=== PATIENT | female | born 1985 | race Caucasian/White ===

== ENCOUNTER 2025-01-16 09:26 | Emergency (ER) | payer MEDICAID, OTHER ==
[~2025-01-16] VITALS: Ht 167.6 cm; Wt 74.7 kg
--- NOTE | 2025-01-16 10:54 | Physician Documentation ---
History of Present Illness Chief Complaint: Flank Pain Stated Complaint: WORSENING UTI Time Seen by MD: 10:43 OK to notify your PCP?: Yes [facility] Source: patient, RN/MD, RN notes reviewed, old records Mode of Arrival: POV, Ambulatory Exam Limitations: no limitations HPI 39 year old female with a history of recurrent urine infections presents to the emergency department for complaints of flank pain with an onset of five days. She states that she is experiencing back pain that is greater on the left than the right. Additionally there are complaints of chills, intermittent fevers, and some burning when urinating. She denies any abnormal vaginal discharge. Patient denies any other associated symptoms at this time. Patient denies any other alleviating or exacerbating factors Medication Reconciliation Allergies: Coded Allergies: No Known Allergies (Unverified , 01/16/25) Scheduled PRN Dicyclomine Hcl* (Bentyl*), 1 CAP PO Q8H PRN for ABDOMINAL PAIN Past Medical History Past Medical History: No Pertinent History Past Surgical History: no surgical history Alcohol Use: Occasionally Drug Use: none Lives with: Family Lives In: Home Occupation: employed Review of Systems All Other Systems at this time: Reviewed and Negative ROS As stated above in the HPI, otherwise all systems are reviewed and negative. Physical Exam Vital Signs: RN Vital Signs have been reviewed: Yes, Temperature: 97.9, Source: Temporal, Heart Rate: 78, Respiratory Rate: 20, BP: 141/103, Pulse Oximetry: 98, Weight: 74.700 Pulse Oximetry Reflects: adequate oxygenation Physical Exam General: The patient is well developed, well nourished, nontoxic appearing and is in no acute distress. Skin: [place], warm and dry with no rashes. HEENT: Head was normocephalic and atraumatic. Eyes - pupils equal, round, reac tive to light and accommodation. Extraocular movements were intact. Conjunctivae were nonicteric. Ears - bilateral tympanic membranes were normal. The mouth and oropharynx were clear with moist mucous membranes. There were no pharyngeal exudates or erythema. Neck: Supple and nontender. There was no jugular venous distention, lymphadenopathy, thyromegaly or masses. Chest: Clear to auscultation bilaterally without wheezes, rales or rhonchi. No accessory muscle use. No dullness to percussion. Heart: Rate regular and rhythmic. S1, S2. No murmurs. Palpation of the chest wall was normal. No rubs or thrills. Abdomen: Mild superpubic discomfort with CVA tenderness greater on left than right. Positive bowel sounds. No guarding or rebound. No hepatosplenomegaly or palpable masses. Extremities: No cyanosis, clubbing or edema. The patient moves all extremities. Pulses were equal and symmetric. Neurologic: Cranial nerves II-XII were intact. Sensation was intact to light touch throughout. Motor strength was 5/5 in all four extremities. Deep tendon reflexes were intact in both upper and lower extremities. Psychologic: The patient was oriented to person, place and time. The patient demonstrated appropriate judgement and insight. Progress Results/Orders Reviewed/noted all lab results: Yes Results/Orders Orders - FORTUNATO COLON MD Cbc/Diff (01/16/25 10:43) Lipase (01/16/25 10:43) Ethanol (01/16/25 10:43) MG (01/16/25 10:43) Urinalysis, Cult If Indicated (01/16/25 10:43) Drug Screen, Urine (01/16/25 10:43) BMP (01/16/25 10:43) Completed Orders - FORTUNATO COLON MD Normal Saline 1000ml (Sodium Chloride 10 (01/16/25 10:45) Vital Signs 01/16/25 01/16/25 01/16/25 09:36 10:38 10:48 Temp 97.9 97.9 Pulse 78 78 Resp 18 20 20 B/P (MAP) 168/107 141/103 (116) Pulse Ox 100 98 Re-Evaluation Re-Evaluation : Re-Evaluation: Improved Progress Patient was seen and examined. Patient is given reassurance. The patient was having some abdominal pain. She was concerned about recurrent UTIs possible sepsis pyelonephritis. However white count was reassuring with a WBC of 8.9 h emoglobin 14 hematocrit 39. Platelets 352 without left shift neutrophils are 70.5. Chemistry was within normal limits urinalysis was negative hCG was negative however patient's tox screen was positive for cocaine negative for alcohol. Patient states she was having some pain the other day and received some pills and may have received a from friend that was over the counter street drugs that was laced. She denies a history of cardiac abuse with cocaine. No history of coronary artery disease. There was no signs of ischemia patient was given Bentyl also benzodiazepines and fluids. She was encouraged to have a soft diet in case she is having some ischemic blood flow to the bowel. Ultimately patient was given reassurance and discharged home. Prescription of Bentyl was prescribed as she continued to have abdominal pain Continuous cardiac specialist interpretation shows normal sinus rhythm heart rate 80s, no ectopy, normal, my interpretation. Pulse oximetry monitor interpretation shows normal oxygenation 99% room air, normal, my interpretation. EKG/XRAY/CT/US/VASC/MRI EKG : Additional Comment [facility] Test Date: 2025-01-16 Test Time: 13:55:11 Pat Name: MERE YOUSSEF Department: [facility]- Patient ID: [id number] Room: Gender: F Evp Marketing: NOE : 1985 Requested By: FORTUNATO COLON Order Number: [id number] Reading MD: Dr. Fortunato Colon Measurements Intervals [place] Rate: 75 P: 28 ND: 137 QRS: 54 QRSD: 97 T: 18 QT: 406 QTc: 454 Interpretive Statements Sinus rhythm Electronically Signed On 01-16-2025 16:26:[address] Fortunato Colon Please click the below link to view image of tracing. EKG Date and Time:01/16/25 1355 Electronically Signed by: FORTUNATO COLON MD Date and Time: 01/16/[address] : Impression Exam: CT CT ABDOMEN PELVIS History: ABD PAIN Comparison Study: None Technique: Multidetector spiral CT of the abdomen and pelvis was performed from lung bases to pubic symphysis. Imaging was performed without IV contrast. Axial, coronal and sagittal multiplanar reformats were obtained from the axial data set by the technologist. Radiation dose : Abdomen/Pelvis: CTDIvol 18 mGy, DLP 872 mGy*cm. Findings: Evaluation of solid organs is limited due to lack of intravenous contrast use. Lung Bases: No acute or significant lung base finding. Normal heart size. No pleural or pericardial effusion. Liver: The liver is normal in size. No focal lesions. Gallbladder and biliary Tree: Unremarkable Spleen: Unremarkable Pancreas: The pancreas is grossly normal in appearance. Adrenal Glands: Unremarkable Kidneys: Kidneys are grossly normal without calculi or hydronephrosis. Bladder: Grossly unremarkable for degree of distention. Bowel: The stomach is grossly normal in appearance. Small bowel and colon are normal in caliber and distribution. The appendix is not visualized; however, no secondary findings of acute appendicitis identified. Ascites: Absent Lymphadenopathy: No mesenteric, retroperitoneal or periportal lymphadenopathy. Abdominal wall and Mesentery: Unremarkable. Vasculature: The visualized abdominal aorta is normal in size and caliber. Evaluation of abdominal and pelvic vessels is limited due to lack of intravenous contrast. Pelvic Organs: Unremarkable Musculoskeletal: No aggressive focal bony lesions, acute fractures or dislocation. IMPRESSION: 1. No acute abdominal or pelvic findings. Radiation optimization: All CT scans at this facility use at least one of these dose optimization techniques: Automated exposure control mA and/or kV adjustment per patient size (includes targeted exams where dose is matched to clinical indication) or iterative reconstruction. HS:Y Electronically Signed by:KALE ESCUDERO MD Date & Time: 01/16/25 1249 Medical Decision Making Differential Dx:Considerations: Include: AAA, Angina/[place], Appendicitis, Bowel obstruction, Cholangitis, Cholelithasis, Constipation, Diverticular disease, Esophageal rupture, Gastritis/PUD, Gastroenteritis, GI hemorrhage, Hernia, Hepatitis, Inflammatory BD, Ischemic bowel, Pancreatitis, PID, Urinary obstruction, Urinary tract infection, Urolithiasis, Other Departure Time of Disposition: 14:42 Disposition: 01 HOME / SELF CARE / HOMELESS Impression: Primary Impression: Abdominal pain Qualified Codes: R10.9 - Unspecified abdominal pain Condition: Stable Discharge Instructions: Abdominal Pain, Adult, [id number] Referrals: NO PRIMARY CARE PROVIDER (PCP) Prescriptions Dicyclomine Hcl* (Bentyl*) 10 Mg Capsule 1 CAP PO Q8H PRN for ABDOMINAL PAIN for 3 Days, #10 CAP Prov: FORTUNATO COLON MD 01/16/25 Education Educated: Patient, Family Educated regarding: diagnosis, treatment, prognosis, need for follow up Signature Scribe Signature: Scribed for Fortunato Colon MD by Sonia Lopes . 01/16/25 11:45 Attestation: The note accurately reflects work and decisions made by me.Fortunato Colon MD 10:54 FORTUNATO COLON MD January 16, 2025 10:54 SONIA LAI January 16, 2025 11:45
[2025-01-16] MEDS: normal saline 1000ML IV soln IVB ONE ×2 (11:01→12:14)
[2025-01-16 11:17] LABS: BASOPHILS # (AUTO) 0.1 X10'3 (0-0.2); BASOPHILS % (AUTO) 0.7 % (0-1); EOSINOPHILS # (AUTO) 0.2 X10'3 (0-0.9); EOSINOPHILS % (AUTO) 2.4 % (0-6); HEMATOCRIT 39.9 % (35.0-45.0); HEMOGLOBIN 14.2 g/dl (12.0-16.0); LYMPHOCYTES # (AUTO) 1.7 X10'3 (1.1-4.8); LYMPHOCYTES % (AUTO) 19.3 % (21-51); MEAN CORPUSCULAR HGB CONC 35.5 g/dL (33.0-36.5); MEAN PLATELET VOLUME 6.3 FL (7.4-10.4); MONOCYTES # (AUTO) 0.6 X10'3 (0-0.9); MONOCYTES % (AUTO) 7.1 % (2-12); NEUTROPHILS # (AUTO) 6.3 X10'3 (1.8-7.7); NEUTROPHILS % (AUTO) 70.5 % (42-75); PLATELET COUNT 352 X10'3 (140-440); RED BLOOD COUNT 4.29 X10'6 (4.20-5.60); RED CELL DISTRIBUTION WIDTH 14.7 % (11.5-14.5); WHITE BLOOD COUNT 8.9 X10'3 (4.5-11.0)
[2025-01-16 11:24] LABS: ANION GAP 7 (8-16); BLOOD UREA NITROGEN 13 MG/DL (7-18); BUN/CREATININE RATIO 17.6 (10.0-20.0); CALCIUM 9.3 MG/DL (8.5-10.1); CHLORIDE 103 MMOL/L (99-107); CREATININE 0.74 MG/DL (0.40-0.90); ETHANOL < 10 MG/DL (<10); GLUCOSE 90 MG/DL (70-104); LIPASE 31 U/L (16-77); MAGNESIUM 2.1 MG/DL (1.5-2.4); POTASSIUM 4.2 MMOL/L (3.5-5.1); SODIUM 140 MMOL/L (135-145); TOTAL CARBON DIOXIDE 30.2 MMOL/L (24-32); eCRCL 97 ML/MIN; eGFR 88 ML/MIN
[2025-01-16 12:11] LABS: BILIRUBIN,URINE NEGATIVE (Neg); CLARITY,URINE CLEAR (Clear); COLOR,URINE YELLOW (Yellow); GLUCOSE, URINE NEGATIVE (Neg); KETONES,URINE NEGATIVE (Neg); LEUKOCYTE ESTERASE ,URINE NEGATIVE (Neg); NITRITES, URINE NEGATIVE (Neg); OCCULT BLOOD,URINE SMALL (Neg); PROTEIN,URINE NEGATIVE (Neg); UROBILINOGEN,URINE 0.2 E.U/dL (0.2-1.0)
[2025-01-16 12:12] LABS: UA COLLECTION TYPE CLN CATCH MIDSTREAM
[2025-01-16 12:14] LABS: URINE HCG NEGATIVE (NEG)
[2025-01-16] MEDS: morphine 2 MG/ML inj. syringe IV PRN (12:14)
[2025-01-16] MEDS: phenazopyridine 100mg tablet PO ONE (12:14)
[2025-01-16 12:17] LABS: RBC,URINE 0-2 /HPF (0-2); WBC,URINE NONE SEEN /HPF (0-4)
[2025-01-16 12:18] LABS: BACTERIA,URINE NONE SEEN /HPF (Neg)
[2025-01-16 12:19] LABS: MUCUS STRANDS NONE SEEN /LPF (Neg); SQUAMOUS EPITHELIAL CELL,UR FEW /LPF (FEW)
[2025-01-16 12:25] LABS: URINE AMPHETAMINE SCREEN NEGATIVE (Neg); URINE BARBITUATE SCREEN NEGATIVE (Neg); URINE BENZODIAZEPINES SCREEN NEGATIVE (Neg); URINE CANNABINOID SCREEN NEGATIVE (Neg); URINE COCAINE SCREEN POSITIVE (Neg); URINE METHADONE SCREEN NEGATIVE (Neg); URINE OPIATE SCREEN NEGATIVE (Neg); URINE PHENCYCLIDINE SCREEN NEGATIVE (Neg)
--- NOTE | 2025-01-16 12:51 | RADIOLOGY REPORT ---
Exam: CT CT ABDOMEN PELVIS History: ABD PAIN Comparison Study: None Technique: Multidetector spiral CT of the abdomen and pelvis was performed from lung bases to pubic symphysis. Imaging was performed without IV contrast. Axial, coronal and sagittal multiplanar reform ats were obtained from the axial data set by the technologist. Radiation dose : Abdomen/Pelvis: CTDIvol 18 mGy, DLP 872 mGy*cm. Findings: Evaluation of solid organs is limited due to lack of intravenous contrast use. Lung Bases: No acute or significant lung base finding. Normal heart size. No pleural or pericardial effusion. Liver: The liver is normal in size. No focal lesions. Gallbladder and biliary Tree: Unremarkable Spleen: Unremarkable Pancreas: The pancreas is grossly normal in appearance. Adrenal Glands: Unremarkable Kidneys: Kidneys are grossly normal without calculi or hydronephrosis. Bladder: Grossly unremarkable for degree of distention. Bowel: The stomach is grossly normal in appearance. Small bowel and colon are normal in caliber and d istribution. The appendix is not visualized; however, no secondary findings of acute appendicitis jarrod ntified. Ascites: Absent Lymphadenopathy: No mesenteric, retroperitoneal or periportal lymphadenopathy. Abdominal wall and Mesentery: Unremarkable. Vasculature: The visualized abdominal aorta is normal in size and caliber. Evaluation of abdominal a nd pelvic vessels is limited due to lack of intravenous contrast. Pelvic Organs: Unremarkable Musculoskeletal: No aggressive focal bony lesions, acute fractures or dislocation. IMPRESSION: 1. No acute abdominal or pelvic findings. Radiation optimization: All CT scans at this facility use at least one of these dose optimization shital hniques: Automated exposure control mA and/or kV adjustment per patient size (includes targeted exams where dose is matched to clinical indication) or iterative reconstruction. HS:Y
[2025-01-16] MEDS: morphine 2 MG/ML inj. syringe IV ONE (13:36)
--- NOTE | 2025-01-16 13:57 | ELECTROCARDIOGRAPH REPORT ---
[facility] Test Date: 2025-01-16 Test Time: 13:55:11 Pat Name: MERE YOUSSEF Department: [facility]- Patient ID: [id number] Room: Gender: F Toddler Caregiver: NOE : 1985 Requested By: MIGUEL A CARLSON Order Number: [id number] Reading MD: Dr. Miguel A Carlson Measurements Intervals [place] Rate: 75 P: 28 ID: [id number] QRS: 54 QRSD: 97 T: 18 QT: 406 QTc: 454 Interpretive Statements Sinus rhythm Electronically Signed On 01-16-2025 16:26:[address] Miguel A Carlson Please click the below link to view image of tracing.
[2025-01-16] MEDS ORDERED: DICY10CA88 PO (14:44)
[2025-01-16 14:52] VITALS: BP 132/88; PULSE 81; RESP 12; TEMP 97.9; O2SAT 100
[2025-01-16] MEDS: diazepam 5mg tablet PO ONE (14:55)
[2025-01-16] MEDS: dicyclomine 10 MG capsule PO ONE (14:55)
== END 2025-01-16 15:05 | disposition home or self-care (01) ==
LOC: ER 09:26
DX: R10.84 Generalized abdominal pain (principal); R50.9 Fever, unspecified; Z72.89 Other problems related to lifestyle
CPT/HCPCS: 36415; 74176; 80048; 80305; 80320; 81001; 81025; 83690; 83735; 85025; 93005; 96361; 96374; 96376; 99285; J2270; J7030